=== PATIENT | female | born 1935 | race Caucasian/White ===

== ENCOUNTER → 2020-04-17 | Outpatient (CLI) | payer MEDICARE, OTHER ==
[~2020-04-17] MED LIST: CHOL10002 PO; DIAZ5 PO; FISH1000 PO; GABA100 PO; GLUC500 PO; HYDACE5 PO; HYDCHL25 PO; LISI5 PO; LORA1 PO; MULVITMIND PO; Percocet 10-321 EACH PO; Prednisone20 MG PO; SPIHYD PO; THYR60 PO; VALA500 PO; VERA240ER PO; ZOLP10 PO
[2020-04-19 15:13] LABS: CORONAVIRUS (COVID19) CSH-NRL Negative (Negative)
== END | disposition home or self-care (01) ==
LOC: LAB 16:38 → LAB SHORT 16:38
PROVIDERS: Nurse Practitioner
DX: Z20.828 Contact with and (suspected) exposure to other viral communicable diseases (principal)
CPT/HCPCS: U0003

== ENCOUNTER → 2021-02-06 | Outpatient (CLI) | payer MEDICARE, OTHER | END | disposition home or self-care (01) | LOC: LAB 17:18 → LAB SHORT 17:18 | DX: N39.0 Urinary tract infection, site not specified (principal) | CPT/HCPCS: 87077; 87086; 87186 ==

== ENCOUNTER 2021-09-10 08:21 | Day surgery (SDC) | payer MEDICARE, OTHER ==
[~2021-09-10] VITALS: Ht 165.1 cm; Wt 68.9 kg
[~2021-09-10 08:21] MED LIST changes: +LEVSOD100 PO
[2021-09-11 04:51] LABS: BASOPHILS ABSOLUTE AUTO 0.01 K/mm3 (0.00-0.23); BASOPHILS PERCENT AUTO 0 % (0-2); EOSINOPHILS PERCENT AUTO 0 % (0-6); Hematocrit 33.1 % (33.0-51.0); Hemoglobin 10.7 g/dL (11.5-16.0); IMMATURE GRAN ABSOLUTE AUTO 0.04 K/mm3 (0.00-0.10); IMMATURE GRAN PERCENT AUTO 1 % (0-1); LYMPHOCYTES ABSOLUTE AUTO 0.74 K/mm3 (0.84-5.20); LYMPHOCYTES PERCENT AUTO 9 % (21-46); MONOCYTES ABSOLUTE AUTO 0.36 K/mm3 (0.16-1.47); MONOCYTES PERCENT AUTO 4 % (4-13); Mean Corpuscular HGB 30.1 pg (26.0-34.0); Mean Corpuscular HGB Conc 32.3 g/dL (31.5-36.5); Mean Corpuscular Volume 93 fL (80-100); Mean Platelet Volume 9.2 fL (9.1-12.4); NEUTROPHILS PERCENT AUTO 86 % (41-73); Platelet Count 195 K/mm3 (150-400); RDW Coefficient Variation 13.3 % (11.7-14.2); RDW Standard Deviation 45.5 fL (35.1-46.3); Red Blood Cell Count 3.55 M/mm3 (3.80-5.20); White Blood Cell Count 8.45 K/mm3 (4.00-11.30)
--- NOTE | 2021-09-11 05:11 | NUR ---
SHIFT SUMMARY NO ACUTE CHANGES TO REPORT THIS SHIFT, PT POD 0 RIGHT KNEE REPAIR. PT PAIN HAS BEEN MINIMAL AND WELL CONTROLLED. MEDICATED PER EMAR. PT HAS BEEN UP AND AMBULATING MULTIPLE TIMES THIS SHIFT TO BATHROOM TO VOID, AND IS TOLERATING AMBULATION WELL. IV ANTIBIOTICS CONTINUED PER ORDERS. VITALS STABLE. DC TODAY. BED IN LOWEST POSITION, CALL LIGHT WITHIN REACH.
[2021-09-11 05:35] LABS: Bun/Creatinine Ratio 23.3 (12.0-20.0); Calcium, Blood 8.9 mg/dL (8.5-10.1); Creatinine, Blood 1.33 mg/dL (0.40-1.00); Potassium, Blood 4.2 mmol/L (3.5-5.5)
--- NOTE | 2021-09-11 10:21 | NUR ---
DISCHARGE NOTE: PATIENT AND DAUGHTER WERE EDUCATED ON DISCHARGE INSTRUCTIONS. PATIENT AND DAUGHTER VERBALIZED UNDERSTANDING OF INSTRUCTIONS. IV WAS TAKEN OUT AND WNL. PATIENT ALREADY GOT HER PAIN PERSCRIPTIONS FILLED PRIOR TO SURGERY. HER RIGHT KNEE HAS 2 AQUACEL THAT ARE C/D/I. SHE IS A SBA WITH FWW AND GAIT BELT. TOLERATING PO INTAKE AND IS VOIDING. PATIENT IS DRESSED AND HAS ITEMS IN THE ROOM GATHERED. PATIENT WAS WHEELCHAIRED DOWN TO DAUGHTERS CAR TO BE TAKEN HOME.
== END 2021-09-11 10:09 | disposition home or self-care (01) ==
LOC: ORSCMMR 08:21 → ORD 11:00 → ORSCMMR 11:00 → SURS 14:13 → ORSCMMR 09-11 10:09
PROVIDERS: Orthopaedic Surgery
PROC: 8E0YXBZ Computer Assisted Procedure of Lower Extremity (ICD-10-PCS; principal; 2021-09-10 11:00)
PROC: 0SRC0J9 Replacement of Right Knee Joint with Synthetic Substitute, Cemented, Open Approach (ICD-10-PCS; principal; 2021-09-10 11:00)
DX: M17.11 Unilateral primary osteoarthritis, right knee (principal); I10 Essential (primary) hypertension; E78.5 Hyperlipidemia, unspecified; F41.8 Other specified anxiety disorders; Z79.899 Other long term (current) drug therapy
CPT/HCPCS: 36415; 73560-RT; 80048; 83735; 85025; 97110; 97116; 97161; 97530; A9270; C1713; C1776; J0171; J0690; J0735; J1100; J1885; J2270; J2405; J2704; J2795; J3010; J3370; J7050; J7120

== ENCOUNTER 2022-04-28 11:40 | Day surgery (SDC) | payer MEDICARE, OTHER ==
[2022-04-28] MEDS ORDERED: SYNOVACIN500 MG (12:07)
[2022-04-28] MEDS ORDERED: Norco 5-325 Ta1 EACH (12:08)
[2022-04-28] MEDS ORDERED: ZOLP5 (12:08)
[2022-04-28] MEDS ORDERED: DIAZ5EL (12:08)
[2022-04-28] MEDS ORDERED: MELA3 (12:08)
[2022-04-28] MEDS ORDERED: Ativan1 MG (12:08)
[2022-04-28] MEDS ORDERED: IBU600 M1 (12:08)
[2022-04-28] MEDS ORDERED: TRAZ50 (12:09)
[2022-04-28] MEDS ORDERED: MIRALAX17 GM (12:09)
[2022-04-28] MEDS ORDERED: TIZA4 (12:09)
== END 2022-04-28 14:20 | disposition home or self-care (01) ==
DX: K62.5 Hemorrhage of anus and rectum (principal); R19.4 Change in bowel habit; K57.30 Diverticulosis of large intestine without perforation or abscess without bleeding; K64.8 Other hemorrhoids; I10 Essential (primary) hypertension; F41.9 Anxiety disorder, unspecified; F32.A Depression, unspecified; E78.5 Hyperlipidemia, unspecified; E03.9 Hypothyroidism, unspecified; Z79.899 Other long term (current) drug therapy

== ENCOUNTER → 2022-06-29 | Outpatient (CLI) | payer MEDICARE, OTHER ==
[~2022-06-29] MED LIST changes: +Ativan1 MG; +DIAZ5EL; +IBU600 M1; +MELA3; +MIRALAX17 GM; +Norco 5-325 Ta1 EACH; +SYNOVACIN500 MG; +TIZA4; +TRAZ50; +ZOLP5
== END | disposition home or self-care (01) ==
LOC: LAB SHORT 12:46
DX: R30.0 Dysuria (principal)
CPT/HCPCS: 87086; 87147